=== PATIENT | female | born 1990 | race Two or more races ===

== ENCOUNTER 2019-04-02 11:46 | Inpatient (IN) | payer MEDICAID ==
[~2019-04-02] VITALS: Ht 165.1 cm; Wt 80.3 kg
[2019-04-02] MEDS ORDERED: NKM (11:53)
[2019-04-02] MEDS ORDERED: Metoclopramide 10mg/2ml Inj IVP ONE ×2 (12:00→17:45)
[2019-04-02] MEDS ORDERED: Isovue-300 100ml vial INJ PRN (12:00)
[2019-04-02] MEDS ORDERED: Ketorolac 30mg Inj IV ONE (12:00)
--- NOTE | 2019-04-02 12:20 | NUR ---
ED Nurse Note pt. came with c/o abdominal pain nausea vomiting since this morning, VSS, pt. is A/Ox4 ambulatory, vomited small amount of byle, called labs to draw blod from pt., given IV meds and fluids
[2019-04-02 12:44] VITALS: BP 153/79
--- NOTE | 2019-04-02 13:09 | NUR ---
ED Nurse Note:pt. was asked to provied urine sample but she couldn't and refused catheter incersion, taken to CT scan- pt. signed waiver
--- NOTE | 2019-04-02 13:49 | Emergency Room Report ---
History of Present Illness General Chief Complaint: Abdominal Pain Source: Family Member (Sofi Leggett DO) Present Illness HPI Patient presents with complaints of increased nausea vomiting diffuse abdominal pain initially it was difficult to obtain appropriate history however family has presented And reports that the patient has had episodes similar to this several times in the recent past She was diagnosed with cyclical vomiting Denies any fevers or chills denies any chest pain denies any shortness of breath (Sofi Leggett DO) Allergies: Coded Allergies: ERYTHROMYCIN BASE (Verified Allergy, Unknown, 04/02/19) Patient History Past Medical History: see triage record Pertinent Family History: none Last Menstrual Period: now Reviewed Nursing Documentation: PMH: Agreed; PSxH: Agreed (Sofi Leggett DO) Nursing Documentation-PMH Past Medical History: No Stated History (Sofi Leggett DO) Review of Systems All Other Systems: negative except mentioned in HPI (Sofi Leggett DO) Physical Exam Vital Signs Date Time Temp Pulse Resp B/P (MAP) Pulse Ox O2 Delivery O2 Flow Rate FiO2 04/02/19 11:48 97.7 49 15 143/78 (99) 100 Room Air Sp02 EP Interpretation: reviewed, normal General Appearance: mild distress - Appears uncomfortable Head: normocephalic, atraumatic Eyes: bilateral eye PERRL, bilateral eye EOMI ENT: hearing grossly normal, normal pharynx, TMs + canals normal, uvula midline Neck: full range of motion, supple, no meningismus, no bony tend Respiratory: lungs clear, normal breath sounds, no rhonchi, no respiratory distress, no retraction, no accessory muscle use Cardiovascular #1: normal peripheral pulses, regular rate, rhythm, no edema, no gallop, no JVD, no murmur Gastrointestinal: normal bowel sounds, non tender, soft, no mass, no organomegaly, non-distended, no guarding, no hernia, no pulsatile mass, no rebound Genitourinary: no CVA tenderness Musculoskeletal: normal inspection Neurologic: oriented x3, responsive, baffle installer III-XII nml as tested, motor strength/ tone normal, sensory intact Psychiatric: mood/affect normal Lymphatic: normal inspection, no adenopathy (Sofi Leggett DO) Medical Decision Making Diagnostic Impression: Primary Impression: Cyclical vomiting syndrome Qualified Codes: G43.A1 - Cyclical vomiting, intractable Labs Test 04/02/19 13:40 04/02/19 14:30 Urine Color Pale yellow Urine Appearance Clear Urine pH 9 (4.5-8.0) Urine Specific [place] 1.015 (1.005-1.035) Urine Protein Negative (NEGATIVE) Urine Glucose (UA) Negative (NEGATIVE) Urine Ketones Negative (NEGATIVE) Urine Blood Negative (NEGATIVE) Urine Nitrite Negative (NEGATIVE) Urine Bilirubin Negative (NEGATIVE) Urine Urobilinogen Normal MG/DL (0.0-1.0) Urine Leukocyte Esterase Negative (NEGATIVE) Urine HCG, Qualitative Negative (NEGATIVE) (Sofi Leggett DO) ER Course Hospital Course 28 yo F presents to ED c/o vomiting and abd pain Initially seen and evaluated by Dr Leggett; see his note for full history and physical Clinical course Labs - no leukocytosis, Hb/Hct stable, electrolytes ok CT abdomen and pelvis - no acute process After multiple rounds of IV fluids and antiemetics patient continues to have nausea and vomiting. Case discussed with Dr. Garner and he agreed to accept the patient to his service for further care and support I feel this is a highly complex case requiring extensive working including EKG/ Rhythm strip, Xray/CT/US, Blood/urine lab work, repeat exams while in ED, and administration of strong opiates/narcotics for pain control, admission to hospital or close patient follow up. Diagnosis - cyclical vomiting syndrome Patient admitted to floor in serious condition Labs Test 04/02/19 14:30 04/02/19 15:00 04/02/19 16:15 Urine Color Pale yellow Urine Appearance Clear Urine pH 9 (4.5-8.0) Urine Specific [place] 1.015 (1.005-1.035) Urine Protein Negative (NEGATIVE) Urine Glucose (UA) Negative (NEGATIVE) Urine Ketones Negative (NEGATIVE) Urine Blood Negative (NEGATIVE) Urine Nitrite Negative (NEGATIVE) Urine Bilirubin Negative (NEGATIVE) Urine Urobilinogen Normal MG/DL (0.0-1.0) Urine Leukocyte Esterase Negative (NEGATIVE) Urine HCG, Qualitative Negative (NEGATIVE) White Blood Count 15.1 K/UL (4.8-10.8) Red Blood Count 4.85 M/UL (4.20-5.40) Hemoglobin 13.0 G/DL (12.0-16.0) Hematocrit 40.5 % (37.0-47.0) Mean Corpuscular Volume 83 FL (80-99) Mean Corpuscular Hemoglobin 26.7 PG (27.0-31.0) Mean Corpuscular Hemoglobin Concent 32.1 G/DL (32.0-36.0) Red Cell Distribution Width 13.3 % (11.6-14.8) Platelet Count 181 K/UL (150-450) Mean Platelet Volume 6.9 FL (6.5-10.1) Neutrophils (%) (Auto) % (45.0-75.0) Lymphocytes (%) (Auto) % (20.0-45.0) Monocytes (%) (Auto) % (1.0-10.0) Eosinophils (%) (Auto) % (0.0-3.0) Basophils (%) (Auto) % (0.0-2.0) Differential Total Cells Counted 100 Neutrophils % (Manual) 85 % (45-75) Lymphocytes % (Manual) 9 % (20-45) Monocytes % (Manual) 4 % (1-10) Eosinophils % (Manual) 0 % (0-3) Basophils % (Manual) 0 % (0-2) Band Neutrophils 2 % (0-8) Platelet Estimate Adequate Platelet Morphology Normal Red Blood Cell Morphology Normal Sodium Level 139 MMOL/L (136-145) Potassium Level 3.8 MMOL/L (3.5-5.1) Chloride Level 107 MMOL/L (98-107) Carbon Dioxide Level 17 MMOL/L (21-32) Anion Gap 15 mmol/L (5-15) Blood Urea Nitrogen 5 mg/dL (7-18) Creatinine 0.9 MG/DL (0.55-1.30) Estimat Glomerular Filtration Rate > 60 mL/min (>60) Glucose Level 115 MG/DL (74-106) Calcium Level 7.7 MG/DL (8.5-10.1) Total Bilirubin 0.3 MG/DL (0.2-1.0) Aspartate Amino Transf (AST/SGOT) 20 U/L (15-37) Alanine Aminotransferase (ALT/SGPT) 19 U/L (12-78) Alkaline Phosphatase 66 U/L (46-116) Total Protein 6.4 G/DL (6.4-8.2) Albumin 3.1 G/DL (3.4-5.0) Globulin 3.3 g/dL Albumin/Globulin Ratio 0.9 (1.0-2.7) Lipase 74 U/L (73-393) Human Chorionic Gonadotropin, Quant < 1 mIU/mL (1-6) (Jayro Jiang MD) CT/MRI/US Diagnostic Results CT/MRI/US Diagnostic Results : Impression CT abdomen pelvisImpression: Limited assessment of the GI tract, due to lack of enteric contrast administration Small sliding-type hiatal hernia. Possible wall thickening of the distal esophagus, could indicate esophagitis. Correlate with clinical findings No acute process otherwise (Sofi Leggett DO) CT/MRI/US Diagnostic Results : Imaging Test Ordered: CT A/P Impression no acute process (Jayro Jiang MD) Last Vital Signs Date Time Temp Pulse Resp B/P (MAP) Pulse Ox O2 Delivery O2 Flow Rate FiO2 04/02/19 12:49 97.7 04/02/19 12:44 57 18 153/79 100 Room Air (Sofi Leggett DO) Status: unchanged (Jayro Jiang MD) Disposition: ADMITTED INPATIENT Condition: Serious Referrals: NOT CHOSEN IPA/,REFERRING (PCP) Sofi Leggett DO Apr 02, 2019 13:49 Jayro Jiang MD Apr 02, 2019 19:48
[2019-04-02] MEDS ORDERED: LORazepam Inj 2mg/ml 1ml IV ONE (14:00)
[2019-04-02] MEDS ORDERED: DiphenhydrAMINE 50mg/ml Inj IVP ONE (14:00)
[2019-04-02 14:03] VITALS: BP 156/77
--- NOTE | 2019-04-02 14:40 | Diagnostic Imaging Report ---
Indication: Abdominal pain Technique: Spiral acquisitions obtained through the abdomen and pelvis. No oral contrast utilized, per emergency room physician request No IV contrast utilized, per referring physician request.. Multiplanar reconstructions were generated. Total dose length product 938.55 mGycm. CTDIvol(s) 18.6 mGy. Dose reduction achieved using automated exposure control Comparison: None Findings: Lack of enteric contrast limits assessment of the GI tract. There is suggestion of a small sliding-type hiatal hernia and possible wall thickening of the distal esophagus. The stomach and duodenum are otherwise unremarkable. The appendix is normal. There is some evidence of fatty proliferation in the colon wall, particularly in the ascending colon. This is probably related to body habitus. There is no evidence of diverticulosis or diverticulitis. No small bowel distention. No free or loculated intraperitoneal gas or fluid is evident. Lack of IV contrast limits assessment of the solid organs. The liver, gallbladder, bile ducts, pancreas, spleen, adrenals, kidneys are all unremarkable. No renal or ureteral calculi, hydronephrosis, or hydroureter. No pelvic mass or adenopathy. There is a tampon present. The included lung bases are clear. The bones are unremarkable. Impression: Limited assessment of the GI tract, due to lack of enteric contrast administration Small sliding-type hiatal hernia. Possible wall thickening of the distal esophagus, could indicate esophagitis. Correlate with clinical findings No acute process otherwise The CT scanner at [facility] is accredited by the [employer] and the scans are performed using protocols designed to limit radiation exposure to as low as reasonably achievable to attain images of sufficient resolution adequate for diagnostic evaluation.
[2019-04-02 14:50] LABS: APPEARANCE,URINE CLEAR; BILIRUBIN, URINE NEGATIVE (NEGATIVE); COLOR,URINE PALE YELLOW; GLUCOSE, URINE (UA) NEGATIVE (NEGATIVE); KETONES,URINE NEGATIVE (NEGATIVE); LEUKOCYTE ESTERASE ,URINE NEGATIVE (NEGATIVE); NITRITE,URINE NEGATIVE (NEGATIVE); PH,URINE 9 (4.5-8.0); PROTEIN,URINE NEGATIVE (NEGATIVE); UROBILINOGEN,URINE NORMAL MG/DL (0.0-1.0)
--- NOTE | 2019-04-02 15:08 | NUR ---
ED Nurse Note:urine and blood sent to labs
[2019-04-02 15:32] LABS: HEMATOCRIT 40.5 % (37.0-47.0); MEAN CORPUSCULAR VOLUME 83 FL (80-99); PLATELET COUNT 181 K/UL (150-450); RED BLOOD COUNT 4.85 M/UL (4.20-5.40); RED CELL DISTRIBUTION WIDTH 13.3 % (11.6-14.8); WHITE BLOOD COUNT 15.1 K/UL (4.8-10.8)
[2019-04-02 16:35] VITALS: BP 116/64
[2019-04-02 16:42] LABS: ANION GAP 15 mmol/L (5-15); BLOOD UREA NITROGEN 5 mg/dL (7-18); CALCIUM 7.7 MG/DL (8.5-10.1); CARBON DIOXIDE 17 MMOL/L (21-32); CHLORIDE 107 MMOL/L (98-107); CREATININE 0.9 MG/DL (0.55-1.30); POTASSIUM 3.8 MMOL/L (3.5-5.1); SODIUM 139 MMOL/L (136-145)
[2019-04-02 16:46] LABS: ALANINE AMINOTRANSFERASE 19 U/L (12-78); ALBUMIN 3.1 G/DL (3.4-5.0); ALBUMIN/GLOBULIN RATIO 0.9 (1.0-2.7); ALKALINE PHOSPHATASE 66 U/L (46-116); ASPARTATE AMINO TRANSFERASE 20 U/L (15-37); BILIRUBIN,TOTAL 0.3 MG/DL (0.2-1.0)
[2019-04-02 18:47] VITALS: BP 123/66
--- NOTE | 2019-04-02 19:15 | NUR ---
ED Nurse Note: Recieved report from elisa Hewitt to resume care, pt in bed lying quietly, awake and alert, iv site patent with fluids infusing, pt is actively vomiting, smalll amount of bile colored fluids, pt on cardiac monitoring, assisted to bedside commode, tolerated well, will resume care as ordered and preapre for admission.
--- NOTE | 2019-04-02 20:05 | NUR ---
ED Nurse Note: PT HAS ROOM FOR ADMISSION, REPORT [facility] TO [facility] ON UNIT, PT MEDICATED FOR EMESIS, NO ACTIVE VOMITING, IV SITE PATENT, NO CP, NO SOB OR LABORED BREATHING, PT BEING TAKEN TO UNIT VIA GURNEY WITH ER-TECH, FAMILY AT BEDSIDE, NAD NOTED DURING TRANSPORT TO FLOOR UNIT.
[2019-04-02 20:35] VITALS: BP 132/73
[2019-04-02] MEDS: D5NS 1,000 ML IV SCH (21:04)
[2019-04-03] VITALS: BP 144/61
--- NOTE | 2019-04-03 01:30 | History and Physical Report ---
DATE OF ADMISSION: 04/02/2019 REASON FOR ADMISSION: 1. Nausea and vomiting. 2. Dehydration. HISTORY OF PRESENT ILLNESS: The patient is a 28-year-old female, who presented to the emergency room with increased nausea, vomiting, and diffuse abdominal pain over the last several days. Family is at bedside, stating that the patient had similar episode 2 years ago and had been diagnosed with cyclic vomiting. They deny any illicit drug use. The patient is very tired, weak, and fatigued, complaining of just constant nausea and vomiting. No current chest pain or shortness of breath. PAST MEDICAL HISTORY: Cyclic vomiting. PAST SURGICAL HISTORY: None. ALLERGIES: Erythromycin. FAMILY HISTORY: None. REVIEW OF SYSTEMS: NEUROLOGIC: The patient denies headache, change in vision, syncope, or presyncopal episodes. CARDIOVASCULAR: No current chest pain, palpitations, or angina. PULMONARY: No difficulty breathing, productive cough, or sputum. GASTROINTESTINAL/GENITOURINARY: The patient is having nausea, vomiting, and occasional diarrhea. ENDOCRINOLOGY: No night sweats, fever, or chills. MUSCULOSKELETAL: The patient is feeling weak, tired, and fatigued. PHYSICAL EXAMINATION: VITAL SIGNS: Blood pressure 123/66, 100% saturation on room air, respiratory rate 16, pulse 71, and temperature 97.7. GENERAL: The patient is awake, not feeling well, ill-appearing, and nauseated. HEENT: Extraocular muscles intact. No lymphadenopathy noted. Oropharyngeal mucosa is clear and dry. CARDIOVASCULAR: S1, S2. No rubs or gallops. PULMONARY: Clear to auscultation bilaterally. No rales, rhonchi, or wheezes. ABDOMEN: Nondistended and nontender. EXTREMITIES: No edema noted. LABORATORY DATA: Labs dated 04/02/2019, white cell count 15.1, hemoglobin 13, and platelet count 181,000. Sodium 139, potassium 3.8, glucose 115, and creatinine 0.9. Urinalysis negative. Quantitative HCG less than 1. ASSESSMENT AND PLAN: 1. Nausea and vomiting with occasional diarrhea. The patient has been diagnosed several years ago with what was known as cyclic vomiting. She was also currently recently having her menstrual cycle. At this time, we will use Tylenol and NSAIDs for any abdominal discomfort related to her menstrual cramps. We will continue aggressive hydration and consult GI for her cyclic vomiting syndrome. 2. Dehydration from her nausea and vomiting. We will continue aggressive hydration. 3. DVT prophylaxis with SCDs. Rich Garner MD DR: JABARI JOB#: [id number] CC:
--- NOTE | 2019-04-03 03:43 | NUR ---
NURSE NOTES: IV access from ER leaking, discontinued. Put in new IV access on Left FA, 24gauge. Was able to infuse 500cc D5NS per MD order before patient complained of FA swelling, insisted IV access be taken out. Dr Garner aware patient no longer has IV access.
[2019-04-03] MEDS: D5NS 1,000 ML IV SCH (03:47)
[2019-04-03 04:00] VITALS: BP 133/71
[2019-04-03 07:22] LABS: ANION GAP 12 mmol/L (5-15); BLOOD UREA NITROGEN 4 mg/dL (7-18); CARBON DIOXIDE 22 MMOL/L (21-32); CHLORIDE 107 MMOL/L (98-107); CREATININE 0.8 MG/DL (0.55-1.30); POTASSIUM 3.1 MMOL/L (3.5-5.1); SODIUM 141 MMOL/L (136-145)
[2019-04-03 07:28] LABS: BASOPHILS % (AUTO) 0.3 % (0.0-2.0); HEMATOCRIT 35.6 % (37.0-47.0); HEMOGLOBIN 11.7 G/DL (12.0-16.0); LYMPHOCYTES % (AUTO) 13.6 % (20.0-45.0); MEAN CORPUSCULAR VOLUME 81 FL (80-99); NEUTROPHILS % (AUTO) 81.2 % (45.0-75.0); PLATELET COUNT 216 K/UL (150-450); RED BLOOD COUNT 4.37 M/UL (4.20-5.40); RED CELL DISTRIBUTION WIDTH 12.8 % (11.6-14.8); WHITE BLOOD COUNT 14.5 K/UL (4.8-10.8)
--- NOTE | 2019-04-03 07:46 | Nephrology Progress Note ---
Assessment/Plan Assessment/Plan: A/P 1. N/V with occasional diarrhea. The patient has been diagnosed several years ago with what was known as cyclic vomiting. - GI to evaluate with reccs - IVFs - start full liquid diet 2. Dehydration from her nausea and vomiting. - full liquid diet 3. DVT prophylaxis with SCD 4. Mild Leukocytosis- Trending down. No fever. UA negative - stress induced. Monitor Subjective Date patient seen: Apr 03, 2019 Time patient seen: 07:44 ROS Limited/Unobtainable: No Gastrointestinal/Abdominal: Reports: vomiting Allergies: Coded Allergies: ERYTHROMYCIN BASE (Verified Allergy, Unknown, 04/02/19) Subjective Patient still nauseated Objective Last 24 Hour Vital Signs Date Time Temp Pulse Resp B/P (MAP) Pulse Ox O2 Delivery O2 Flow Rate FiO2 04/03/19 04:00 98.3 58 18 133/71 (91) 99 04/03/19 01:35 Room Air 04/03/19 00:00 98.6 61 20 144/61 (88) 96 04/02/19 20:35 97.9 70 20 132/73 (92) 96 04/02/19 20:05 97.7 71 16 123/66 100 Room Air 04/02/19 18:47 71 16 123/66 100 Room Air 04/02/19 16:35 97.7 70 15 116/64 100 Room Air 04/02/19 14:03 97.7 65 18 156/77 100 Room Air 04/02/19 12:49 97.7 04/02/19 12:44 97.7 57 18 153/79 100 Room Air 04/02/19 12:44 57 18 Room Air 04/02/19 11:48 97.7 49 15 143/78 (99) 100 Room Air Intake and Output 04/02/19 04/03/19 19:00 07:00 Intake Total 750 ml Output Total 150 ml Balance -150 ml 750 ml Intake IV Total 750 ml Output Emesis 150 ml # Voids 2 Laboratory Tests 04/02/19 14:30: Urine Color Pale yellow, Urine Appearance Clear, Urine pH 9, Urine Specific [place] 1.015, Urine Protein Negative, Urine Glucose (UA) Negative, Urine Ketones Negative, Urine Blood Negative, Urine Nitrite Negative, Urine Bilirubin Negative, Urine Urobilinogen Normal, Urine Leukocyte Esterase Negative, Urine HCG, Qualitative Negative 04/02/19 15:00: White Blood Count 15.1H, Red Blood Count 4.85, Hemoglobin 13.0, Hematocrit 40.5 , Mean Corpuscular Volume 83, Mean Corpuscular Hemoglobin 26.7L, Mean Corpuscular Hemoglobin Concent 32.1, Red Cell Distribution Width 13.3, Platelet Count 181, Mean Platelet Volume 6.9, Neutrophils (%) (Auto) , Lymphocytes (%) ( Auto) , Monocytes (%) (Auto) , Eosinophils (%) (Auto) , Basophils (%) (Auto) , Differential Total Cells Counted 100, Neutrophils % (Manual) 85H, Lymphocytes % (Manual) 9L, Monocytes % (Manual) 4, Eosinophils % (Manual) 0, Basophils % ( Manual) 0, Band Neutrophils 2, Platelet Estimate Adequate, Platelet Morphology Normal, Red Blood Cell Morphology Normal 04/02/19 16:15: Sodium Level 139, Potassium Level 3.8, Chloride Level 107, Carbon Dioxide Level 17L, Anion Gap 15, Blood Urea Nitrogen 5L, Creatinine 0.9, Estimat Glomerular Filtration Rate > 60, Glucose Level 115H, Calcium Level 7.7L, Total Bilirubin 0.3, Aspartate Amino Transf (AST/SGOT) 20, Alanine Aminotransferase (ALT/SGPT) 19, Alkaline Phosphatase 66, Total Protein 6.4, Albumin 3.1L, Globulin 3.3, Albumin/Globulin Ratio 0.9L, Lipase 74, Human Chorionic Gonadotropin, Quant < 1L 04/02/19 23:40: Urine Opiates Screen Negative, Urine Barbiturates Screen Negative, Phencyclidine (PCP) Screen Negative, Urine Amphetamines Screen Negative, Urine Benzodiazepines Screen Negative, Urine Cocaine Screen Negative, Urine Marijuana (THC) Screen PositiveH 04/03/19 06:38: White Blood Count 14.5H, Red Blood Count 4.37, Hemoglobin 11.7L, Hematocrit 35.6L, Mean Corpuscular Volume 81, Mean Corpuscular Hemoglobin 26.8L, Mean Corpuscular Hemoglobin Concent 33.0, Red Cell Distribution Width 12.8, Platelet Count 216, Mean Platelet Volume 7.6, Neutrophils (%) (Auto) 81.2H, Lymphocytes ( %) (Auto) 13.6L, Monocytes (%) (Auto) 5.0, Eosinophils (%) (Auto) 0.0, Basophils (%) (Auto) 0.3, Sodium Level 141, Potassium Level 3.1L, Chloride Level 107, Carbon Dioxide Level 22, Anion Gap 12, Blood Urea Nitrogen 4L, Creatinine 0.8, Estimat Glomerular Filtration Rate > 60, Glucose Level 118H, Calcium Level 8.0L Height (Feet): 5 Height (Inches): 3.00 Weight (Pounds): 170 General Appearance: no apparent distress EENT: normal ENT inspection Neck: normal alignment, supple Cardiovascular: normal rate, regular rhythm Respiratory/Chest: lungs clear, normal breath sounds Abdomen: non tender, soft Edema: no edema noted Arm (L), no edema noted Arm (R), no edema noted Leg (L), no edema noted Leg (R), no edema noted Pedal (L), no edema noted Pedal (R), no edema noted Generalized Rich Garner MD Apr 03, 2019 07:46
[2019-04-03 08:00] VITALS: BP 106/53
--- NOTE | 2019-04-03 08:18 | NUR ---
NURSE NOTES: patient is awake and alert,no complaints of nausea at this time.DR De Paz was here to see patient ,patient will start on a full liquid diet.Jaren light within reach.
--- NOTE | 2019-04-03 09:36 | General Progress Note ---
Assessment/Plan Assessment/Plan: Assessment - intermittent vomiting x 10 years, Cannabis hyperemesis synd vs cyclic N/V - daily cannabis use Recommendations - IVF - antiemetics - advance diet as tolerated - reduce cannabis consumption - further w/u if symptoms persist Thank you Loren Green MD Subjective Allergies: Coded Allergies: ERYTHROMYCIN BASE (Verified Allergy, Unknown, 04/02/19) Objective Last 24 Hour Vital Signs Date Time Temp Pulse Resp B/P (MAP) Pulse Ox O2 Delivery O2 Flow Rate FiO2 04/03/19 04:00 98.3 58 18 133/71 (91) 99 04/03/19 01:35 Room Air 04/03/19 00:00 98.6 61 20 144/61 (88) 96 04/02/19 20:35 97.9 70 20 132/73 (92) 96 04/02/19 20:05 97.7 71 16 123/66 100 Room Air 04/02/19 18:47 71 16 123/66 100 Room Air 04/02/19 16:35 97.7 70 15 116/64 100 Room Air 04/02/19 14:03 97.7 65 18 156/77 100 Room Air 04/02/19 12:49 97.7 04/02/19 12:44 97.7 57 18 153/79 100 Room Air 04/02/19 12:44 57 18 Room Air 04/02/19 11:48 97.7 49 15 143/78 (99) 100 Room Air Intake and Output 04/02/19 04/03/19 19:00 07:00 Intake Total 750 ml Output Total 150 ml Balance -150 ml 750 ml Intake IV Total 750 ml Output Emesis 150 ml # Voids 2 Laboratory Tests 04/02/19 14:30: Urine Color Pale yellow, Urine Appearance Clear, Urine pH 9, Urine Specific [place] 1.015, Urine Protein Negative, Urine Glucose (UA) Negative, Urine Ketones Negative, Urine Blood Negative, Urine Nitrite Negative, Urine Bilirubin Negative, Urine Urobilinogen Normal, Urine Leukocyte Esterase Negative, Urine HCG, Qualitative Negative 04/02/19 15:00: White Blood Count 15.1H, Red Blood Count 4.85, Hemoglobin 13.0, Hematocrit 40.5 , Mean Corpuscular Volume 83, Mean Corpuscular Hemoglobin 26.7L, Mean Corpuscular Hemoglobin Concent 32.1, Red Cell Distribution Width 13.3, Platelet Count 181, Mean Platelet Volume 6.9, Neutrophils (%) (Auto) , Lymphocytes (%) ( Auto) , Monocytes (%) (Auto) , Eosinophils (%) (Auto) , Basophils (%) (Auto) , Differential Total Cells Counted 100, Neutrophils % (Manual) 85H, Lymphocytes % (Manual) 9L, Monocytes % (Manual) 4, Eosinophils % (Manual) 0, Basophils % ( Manual) 0, Band Neutrophils 2, Platelet Estimate Adequate, Platelet Morphology Normal, Red Blood Cell Morphology Normal 04/02/19 16:15: Sodium Level 139, Potassium Level 3.8, Chloride Level 107, Carbon Dioxide Level 17L, Anion Gap 15, Blood Urea Nitrogen 5L, Creatinine 0.9, Estimat Glomerular Filtration Rate > 60, Glucose Level 115H, Calcium Level 7.7L, Total Bilirubin 0.3, Aspartate Amino Transf (AST/SGOT) 20, Alanine Aminotransferase (ALT/SGPT) 19, Alkaline Phosphatase 66, Total Protein 6.4, Albumin 3.1L, Globulin 3.3, Albumin/Globulin Ratio 0.9L, Lipase 74, Human Chorionic Gonadotropin, Quant < 1L 04/02/19 23:40: Urine Opiates Screen Negative, Urine Barbiturates Screen Negative, Phencyclidine (PCP) Screen Negative, Urine Amphetamines Screen Negative, Urine Benzodiazepines Screen Negative, Urine Cocaine Screen Negative, Urine Marijuana (THC) Screen PositiveH 04/03/19 06:38: White Blood Count 14.5H, Red Blood Count 4.37, Hemoglobin 11.7L, Hematocrit 35.6L, Mean Corpuscular Volume 81, Mean Corpuscular Hemoglobin 26.8L, Mean Corpuscular Hemoglobin Concent 33.0, Red Cell Distribution Width 12.8, Platelet Count 216, Mean Platelet Volume 7.6, Neutrophils (%) (Auto) 81.2H, Lymphocytes ( %) (Auto) 13.6L, Monocytes (%) (Auto) 5.0, Eosinophils (%) (Auto) 0.0, Basophils (%) (Auto) 0.3, Sodium Level 141, Potassium Level 3.1L, Chloride Level 107, Carbon Dioxide Level 22, Anion Gap 12, Blood Urea Nitrogen 4L, Creatinine 0.8, Estimat Glomerular Filtration Rate > 60, Glucose Level 118H, Calcium Level 8.0L Height (Feet): 5 Height (Inches): 3.00 Weight (Pounds): 170 Loren Green MD Apr 03, 2019 09:36
--- NOTE | 2019-04-03 10:53 | NUR ---
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
[2019-04-03 12:00] VITALS: BP 148/70
[2019-04-03 16:00] VITALS: BP 105/48
--- NOTE | 2019-04-03 18:16 | NUR ---
NURSE NOTES: Patient nauseated with vomiting,attempt to restart IV.Will attempt using vein finder.
[2019-04-03 20:00] VITALS: BP 142/69
--- NOTE | 2019-04-03 20:01 | NUR ---
HAND-OFF: Report given to Earnestine Fang.
--- NOTE | 2019-04-03 20:40 | NUR ---
NURSE NOTES: Patient was found by the charge manager kneeling on the floor around 2019. The patient said she was trying to go to the bathroom and slid down the side of the bed. She stated that grabbed the side rail on her way down, and she bumped her right hip on the side rail on her way down. Patient denies any pain in the right hip and said she did not hit her head. No apparent injury upon assessment. notified.
--- NOTE | 2019-04-03 20:50 | NUR ---
NURSE NOTES: Received report from MOODY Al. Patient is awake and alert x4. Patient is room air with no SOB. Patient noted to be vomitting. Provided basin and Zofran around 2034. Patient does not have IV access at this time. Previous shift unable to obtain IV access per AM nurse. Will attempt to gain access. Bed is locked and in lowest position. Call light is within reach. Will continue to monitor closely.
[2019-04-03] MEDS ORDERED: Dicyclomine HCl 10mg/5ml oral soln ORAL PRN (22:15)
--- NOTE | 2019-04-03 22:15 | NUR ---
NURSE NOTES: Patient complaining of nausea and abdominal pain. Informed MD of patient's complaints. Orders were put in and carried out.
[2019-04-04] VITALS (7 sets, daily range): BP systolic 136–152; BP diastolic 76–91
[2019-04-04] MEDS ORDERED: Lidocaine 1% Plain 30 ml INJ PRN ×2 (01:30→09:30)
--- NOTE | 2019-04-04 03:00 | Consultation ---
DATE OF CONSULTATION: 04/03/2019 GASTROENTEROLOGY CONSULTATION CONSULTING PHYSICIAN: Loren Green M.D. REFERRING PHYSICIAN: Rich Garner M.D. CHIEF COMPLAINT: I was asked to see this patient by Dr. Rich Garner for evaluation of vomiting. HISTORY OF PRESENT ILLNESS: The patient is a pleasant 28-year-old woman, who came into the hospital with one-day history of nausea and vomiting. The patient has had some diffuse abdominal pain, which is improved. She does relate that her vomiting has subsided. The patient had another attack about 2 years ago. She states she has had these attacks for the past 10 or 11 years. She states this started 10 years ago and she has been hospitalized a few times. The patient has had an endoscopy in 2006, which was unremarkable. She does take marijuana daily for the past 10 years as well. PAST MEDICAL HISTORY: Otherwise negative. FAMILY HISTORY: Noncontributory. PAST SURGICAL HISTORY: None. SOCIAL HISTORY: The patient is here on a trip. She is otherwise from the [facility]. REVIEW OF SYSTEMS: Otherwise negative. PHYSICAL EXAMINATION: GENERAL: This is a pleasant woman, seen in her room. HEENT: Normocephalic and atraumatic. Sclerae anicteric. Oropharynx clear. NECK: Supple. CHEST: Clear to auscultation. CARDIOVASCULAR: Revealed a regular rate. ABDOMEN: Soft. Good bowel sounds. EXTREMITIES: Revealed no edema. LABORATORY DATA: Noted. ASSESSMENT: This patient presents with cyclic nausea and vomiting, which is recurrent in this patient for the past 10 years. It is also interesting that the timeline coincides with her 10-year use of cannabis, which brings up the possibility of cannabis hyperemesis syndrome. The differential diagnosis includes cyclic nausea vomiting syndrome, which can mimic many of the same features. Given the possibility of the former, I strongly encouraged the patient to discontinue the marijuana use and determine whether her symptoms will resolve off cannabis use. For cyclic nausea and vomiting, the usual treatment is either symptomatic or sometimes treated as migraine disorder. If it persists, then further evaluation with endoscopy or other modalities can be considered. RECOMMENDATIONS: Per above discussion and per orders in the chart. Thank you for asking me to participate in the care of this patient Loren Green M.D. DR: STEPHON JOB#: [id number] CC: ANDRADE
[2019-04-04] MEDS ORDERED: Heparin1,000 units/500ml Premix(Conc:2 units/ml) IV PRN ×2 (06:30→09:30)
--- NOTE | 2019-04-04 07:43 | NUR ---
HAND-OFF: Report given to MOODY Al.
--- NOTE | 2019-04-04 07:53 | NUR ---
NURSE NOTES: Patient awake and alert,respirations unlabored,DR Green was here to see patient,patient state DR singletary wants to do procedure,patient state she is scared,talking with her Mother on the phone,will follow up.Call light within reach,bed alarm on.
[2019-04-04 08:55] LABS: ANION GAP 13 mmol/L (5-15); BLOOD UREA NITROGEN 9 mg/dL (7-18); CALCIUM 8.4 MG/DL (8.5-10.1); CARBON DIOXIDE 23 MMOL/L (21-32); CHLORIDE 107 MMOL/L (98-107); POTASSIUM 2.9 MMOL/L (3.5-5.1); SODIUM 143 MMOL/L (136-145)
--- NOTE | 2019-04-04 09:03 | General Progress Note ---
Assessment/Plan Assessment/Plan: Assessment - intermittent vomiting x 10 years, Cannabis hyperemesis synd vs cyclic N/V - daily cannabis use - dark emesis, likely secondary to frequent emesis - no IV access Recommendations - IVF - once IV access established - antiemetics - clears for now - EGD tomorrow,if patient accepts - reduce cannabis consumption - further w/u if symptoms persist Subjective Allergies: Coded Allergies: ERYTHROMYCIN BASE (Verified Allergy, Unknown, 04/02/19) Subjective more vomiting through the night some dark color emesis noted no IV access advised need for EGD - not sure if she will accept Objective Last 24 Hour Vital Signs Date Time Temp Pulse Resp B/P (MAP) Pulse Ox O2 Delivery O2 Flow Rate FiO2 04/04/19 04:00 98.1 54 18 152/91 (111) 100 04/04/19 00:00 98.4 58 18 138/80 (99) 100 04/03/19 21:00 Room Air 04/03/19 20:00 99.2 56 18 142/69 (93) 100 04/03/19 16:00 98.1 56 18 105/48 (67) 99 04/03/19 12:00 98.4 53 18 148/70 (96) 98 Intake and Output 04/03/19 04/04/19 19:00 07:00 Intake Total 360 ml 720 ml Balance 360 ml 720 ml Intake Oral 360 ml 720 ml Laboratory Tests 04/04/19 07:50: Sodium Level 143, Potassium Level 2.9L, Chloride Level 107, Carbon Dioxide Level 23, Anion Gap 13, Blood Urea Nitrogen 9, Creatinine 1.0, Estimat Glomerular Filtration Rate > 60, Glucose Level 128H, Calcium Level 8.4L Height (Feet): 5 Height (Inches): 3.00 Weight (Pounds): 177 Objective WDWN NCAT supple CTA RRR abd soft, mild epigastric TTP no edema Loren Green MD Apr 04, 2019 09:03
--- NOTE | 2019-04-04 09:32 | Nephrology Progress Note ---
Assessment/Plan Assessment/Plan: A/P 1. N/V- persists and we have no current IV access despite 24 hrs of attempts - cyclic vomiting vs cannabis hyperemesis - EGD tomorrow - IVFs once PICC placed 2. Dehydration from her nausea and vomiting. - full liquid diet 3. DVT prophylaxis with SCD 4. Mild Leukocytosis- reopeat CBC in am 5. Hypokalemia- replacing daily from hyperemesis Subjective Date patient seen: Apr 04, 2019 Time patient seen: 09:29 ROS Limited/Unobtainable: No Gastrointestinal/Abdominal: Reports: nausea, vomiting Allergies: Coded Allergies: ERYTHROMYCIN BASE (Verified Allergy, Unknown, 04/02/19) Subjective Patient still nauseated Objective Last 24 Hour Vital Signs Date Time Temp Pulse Resp B/P (MAP) Pulse Ox O2 Delivery O2 Flow Rate FiO2 04/04/19 04:00 98.1 54 18 152/91 (111) 100 04/04/19 00:00 98.4 58 18 138/80 (99) 100 04/03/19 21:00 Room Air 04/03/19 20:00 99.2 56 18 142/69 (93) 100 04/03/19 16:00 98.1 56 18 105/48 (67) 99 04/03/19 12:00 98.4 53 18 148/70 (96) 98 Intake and Output 04/03/19 04/04/19 19:00 07:00 Intake Total 360 ml 720 ml Balance 360 ml 720 ml Intake Oral 360 ml 720 ml Laboratory Tests 04/04/19 07:50: Sodium Level 143, Potassium Level 2.9L, Chloride Level 107, Carbon Dioxide Level 23, Anion Gap 13, Blood Urea Nitrogen 9, Creatinine 1.0, Estimat Glomerular Filtration Rate > 60, Glucose Level 128H, Calcium Level 8.4L Height (Feet): 5 Height (Inches): 3.00 Weight (Pounds): 177 General Appearance: no apparent distress, mild distress EENT: PERRL/EOMI Neck: normal alignment, supple Cardiovascular: normal rate, regular rhythm Respiratory/Chest: lungs clear, normal breath sounds Abdomen: non tender, soft Edema: no edema noted Arm (L), no edema noted Arm (R), no edema noted Leg (L), no edema noted Leg (R), no edema noted Pedal (L), no edema noted Pedal (R), no edema noted Generalized Rich Garner MD Apr 04, 2019 09:32
--- NOTE | 2019-04-04 11:01 | NUR ---
*-* INSURANCE *-* ALL CLINICALS AND REVIEWS HAVE BEEN FAXED TO: [facility]DR[facility]: TAMIKO Potts (OUT OF THE OFFICE) P- [phone] F- [phone]...REVIEW & CLINICAL
--- NOTE | 2019-04-04 11:05 | NUR ---
RADIOLOGY: LEFT UPPER EXTREMITY PICC PLACED.
[2019-04-04] MEDS: D5NS 1,000 ML IV SCH ×3 (11:30→23:09)
--- NOTE | 2019-04-04 11:33 | Diagnostic Imaging Report ---
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 The left upper extremity was prepped with alcohol. All elements of maximal sterile barrier technique were followed including usage of a cap, mask, sterile gown, sterile gloves, hand hygiene and a large sterile sheet. Sonographic evaluation of the upper extremity was performed demonstrating a patent and compressible brachial vein. Access was obtained under real-time ultrasound guidance (with utilization of sterile gel and sterile probe cover) and digital image was saved and archived. An .018 wire was introduced. Needle exchanged for a 5 [place] peel-away sheath. Measurements were obtained. A 5 [place] dual-lumen Power PICC line catheter was cut to 45 cm and introduced over the wire. Peel-away sheath and wire were removed.Catheter was secured to the skin using 2-0 Prolene suture. Both ports aspirate and flush easily. A single fluoroscopic image shows the distal tip in the superior vena cava. Fluoroscopic time 19 seconds. Impression: Successful placement of an upper extremity PICC line catheter
--- NOTE | 2019-04-04 13:52 | NUR ---
NURSE NOTES: Patient complaining of pain, patient requesting IV pain medication instead of po . .DR Marques state patient can have for pain, Morphine 1mg [id number] prn pain if okay with DR Green.Spoke with DR Green and state that is okay to give as ordered.DR Marques aware patient did not take po potassium ,DR state okay since patient receiving the IV potassium as ordered.DR Green updated that patient agree to have EGD ,DR state he will put in the order.
[2019-04-04] MEDS: Morphine Sulfate 2mg/ml Inj(IV/IM USE ONLY) IVP PRN ×2 (14:51→20:19)
--- NOTE | 2019-04-04 18:30 | NUR ---
NURSE NOTES: patient resting,no complaint of nausea at this time,patient received IVPB potassium as ordered.IV fluids continue to infuse as ordered.Call light within reach.
--- NOTE | 2019-04-04 19:33 | NUR ---
HAND-OFF: Report given to Earnestine URIOSTEGUI.
--- NOTE | 2019-04-04 19:46 | NUR ---
NURSE NOTES: Received report from MOODY Al. Patient is sitting up in bed. Alert x4, room air, with no signs of distress or SOB. Bed is locked and in lowest position with 2 side rails up. Left upper arm PICC line is intact and patent. Patient is complaining of nausea. Will follow up and give medication as ordered.
[2019-04-04] MEDS ORDERED: Dyna-Hex 2% Top Sol 2oz TOPIC SCH (20:00)
[2019-04-04] MEDS: Dyna-Hex 2% Top Sol 2oz TOPIC SCH (20:17)
[2019-04-05] VITALS (10 sets, daily range): BP systolic 116–142; BP diastolic 53–79
[2019-04-05] MEDS: Morphine Sulfate 2mg/ml Inj(IV/IM USE ONLY) IVP PRN (01:15)
--- NOTE | 2019-04-05 01:15 | NUR ---
NURSE NOTES: Pulled out Zofran from Pyxis around 0110 to administer. Noted that frequency was Q6H and no longer Q4H. Did not administer. Zofran was already pulled through syringe. Wasted med in the Pyxis & med room.
[2019-04-05] MEDS: D5NS 1,000 ML IV SCH (06:20)
[2019-04-05 07:29] LABS: BASOPHILS % (AUTO) 0.7 % (0.0-2.0); EOSINOPHILS % (AUTO) 0.5 % (0.0-3.0); HEMATOCRIT 34.5 % (37.0-47.0); LYMPHOCYTES % (AUTO) 24.1 % (20.0-45.0); MEAN CORPUSCULAR VOLUME 83 FL (80-99); MONOCYTES % (AUTO) 6.1 % (1.0-10.0); NEUTROPHILS % (AUTO) 68.6 % (45.0-75.0); PLATELET COUNT 166 K/UL (150-450); RED BLOOD COUNT 4.17 M/UL (4.20-5.40); RED CELL DISTRIBUTION WIDTH 13.1 % (11.6-14.8)
[2019-04-05 07:32] LABS: ANION GAP 8 mmol/L (5-15); BLOOD UREA NITROGEN 5 mg/dL (7-18); CALCIUM 7.4 MG/DL (8.5-10.1); CARBON DIOXIDE 27 MMOL/L (21-32); CHLORIDE 108 MMOL/L (98-107); CREATININE 0.8 MG/DL (0.55-1.30); POTASSIUM 2.8 MMOL/L (3.5-5.1); SODIUM 143 MMOL/L (136-145)
--- NOTE | 2019-04-05 07:34 | NUR ---
HAND-OFF: Report given to MOODY Umanzor. Addendum: 04/05/19 at 0735 by ELIZABETH FERNANDES RN MOODY Gomez
--- NOTE | 2019-04-05 07:40 | NUR ---
NURSE NOTES: Received patient from Earnestine URIOSTEGUI in bed resting, denies any pain at this time. Patient is alert and oriented x4, no s/s of acute distress noted. Bed is on lowest position, bedside rails is up x3.Double-lumen PICC on left upper arm is intact and patent. Brakes engaged for safety. Call light and table within reach. Will continue with the plan of care.
--- NOTE | 2019-04-05 09:33 | Nephrology Progress Note ---
Assessment/Plan Assessment/Plan: A/P 1. N/V- persists - cyclic vomiting vs cannabis hyperemesis - EGD today 2. Dehydration from her nausea and vomiting. - IVFs 3. DVT prophylaxis with SCD 4. Mild Leukocytosis- stress induced and improved 5. Hypokalemia- replacing daily from hyperemesis Subjective Date patient seen: Apr 05, 2019 Time patient seen: 09:31 ROS Limited/Unobtainable: No Allergies: Coded Allergies: ERYTHROMYCIN BASE (Verified Allergy, Unknown, 04/02/19) Subjective Patient still nauseated with slight improvement Objective Last 24 Hour Vital Signs Date Time Temp Pulse Resp B/P (MAP) Pulse Ox O2 Delivery O2 Flow Rate FiO2 04/05/19 04:00 98.3 58 18 116/53 (74) 98 04/05/19 00:00 98.2 64 18 142/76 (98) 99 04/04/19 21:00 Room Air 04/04/19 20:00 98.6 61 16 151/76 (101) 98 04/04/19 17:12 98.9 54 14 136/81 (99) 99 04/04/19 16:00 98.9 54 14 136/81 (99) 99 04/04/19 12:02 98.6 53 18 143/79 (100) 97 04/04/19 10:19 Room Air Intake and Output 04/04/19 04/05/19 19:00 07:00 Intake Total 600 ml 1500 ml Balance 600 ml 1500 ml IV Total 600 ml 1500 ml Laboratory Tests 04/05/19 04:50: White Blood Count 12.0H, Red Blood Count 4.17L, Hemoglobin 11.0L, Hematocrit 34.5L, Mean Corpuscular Volume 83, Mean Corpuscular Hemoglobin 26.4L, Mean Corpuscular Hemoglobin Concent 31.9L, Red Cell Distribution Width 13.1, Platelet Count 166, Mean Platelet Volume 8.1, Neutrophils (%) (Auto) 68.6, Lymphocytes (%) (Auto) 24.1, Monocytes (%) (Auto) 6.1, Eosinophils (%) (Auto) 0.5, Basophils (%) (Auto) 0.7, Sodium Level 143, Potassium Level 2.8L, Chloride Level 108H, Carbon Dioxide Level 27, Anion Gap 8, Blood Urea Nitrogen 5L, Creatinine 0.8, Estimat Glomerular Filtration Rate > 60, Glucose Level 94, Calcium Level 7.4L Height (Feet): 5 Height (Inches): 5.00 Weight (Pounds): 177 General Appearance: no apparent distress, mild distress Rich Garner MD Apr 05, 2019 09:33
--- NOTE | 2019-04-05 09:50 | NUR ---
NURSE NOTES: Patient off the floor for EGD procedure.
[2019-04-05] MEDS ORDERED: Propofol 200mg/20ml IV ONE (10:00)
[2019-04-05] MEDS ORDERED: fentaNYL 100 mcg/2 mL IV ONE (10:00)
[2019-04-05] MEDS ORDERED: Midazolam 2mg/2ml Inj ONE (10:00)
--- NOTE | 2019-04-05 10:07 | General Progress Note ---
Assessment/Plan Assessment/Plan: Assessment - intermittent vomiting x 10 years, Cannabis hyperemesis synd vs cyclic N/V - daily cannabis use - dark emesis, likely secondary to frequent emesis - low K , likely from emesis Recommendations - IV KCL - antiemetics - EGD - reduce cannabis consumption - further w/u if symptoms persist Subjective Allergies: Coded Allergies: ERYTHROMYCIN BASE (Verified Allergy, Unknown, 04/02/19) Subjective last emesis at 0300 K lower today d/w patient re EGD Objective Last 24 Hour Vital Signs Date Time Temp Pulse Resp B/P (MAP) Pulse Ox O2 Delivery O2 Flow Rate FiO2 04/05/19 09:00 Room Air 04/05/19 08:00 98.3 60 18 128/70 (89) 98 04/05/19 04:00 98.3 58 18 116/53 (74) 98 04/05/19 00:00 98.2 64 18 142/76 (98) 99 04/04/19 21:00 Room Air 04/04/19 20:00 98.6 61 16 151/76 (101) 98 04/04/19 17:12 98.9 54 14 136/81 (99) 99 04/04/19 16:00 98.9 54 14 136/81 (99) 99 04/04/19 12:02 98.6 53 18 143/79 (100) 97 04/04/19 10:19 Room Air Intake and Output 04/04/19 04/05/19 19:00 07:00 Intake Total 600 ml 1500 ml Balance 600 ml 1500 ml IV Total 600 ml 1500 ml Laboratory Tests 04/05/19 04:50: White Blood Count 12.0H, Red Blood Count 4.17L, Hemoglobin 11.0L, Hematocrit 34.5L, Mean Corpuscular Volume 83, Mean Corpuscular Hemoglobin 26.4L, Mean Corpuscular Hemoglobin Concent 31.9L, Red Cell Distribution Width 13.1, Platelet Count 166, Mean Platelet Volume 8.1, Neutrophils (%) (Auto) 68.6, Lymphocytes (%) (Auto) 24.1, Monocytes (%) (Auto) 6.1, Eosinophils (%) (Auto) 0.5, Basophils (%) (Auto) 0.7, Sodium Level 143, Potassium Level 2.8L, Chloride Level 108H, Carbon Dioxide Level 27, Anion Gap 8, Blood Urea Nitrogen 5L, Creatinine 0.8, Estimat Glomerular Filtration Rate > 60, Glucose Level 94, Calcium Level 7.4L Height (Feet): 5 Height (Inches): 5.00 Weight (Pounds): 177 Objective WDWN NCAT supple CTA RRR abd soft, mild epigastric TTP no edema Loren Green MD Apr 05, 2019 10:07
--- NOTE | 2019-04-05 10:07 | Pre-Procedure Note/Attestation ---
Pre-Procedure Note/Attestation Complete Prior to Procedure Planned Procedure: not applicable Procedure Narrative: EGD Indications for Procedure Pre-Operative Diagnosis: UGIB Attestation I attest that I discussed the nature of the procedure; its benefits; risks and complications; and alternatives (and the risks and benefits of such alternatives ), prior to the procedure, with the patient (or the patient's legal liability claims representative). I attest that, if there was a reasonable possibility of needing a blood transfusion, the patient (or the patient's legal liability claims representative) was given the [facility] standardized written summary, pursuant to the [place] Gal[place] Blood Safety Act ([place] Health and Safety Code # 1645, as amended). I attest that I re-evaluated the patient just prior to the surgery and that there has been no change in the patient's H&P, except as documented below: Loren Green MD Apr 05, 2019 10:07
--- NOTE | 2019-04-05 10:21 | Endoscopy Procedure Note ---
Endoscopy Procedure Note General Indication for Procedure: UGIB Procedures Performed: EGD Operative Findings/Diagnosis: 4 cm HH and ulcerative GERD Specimen: yes Pt Tolerated Procedure Well: Yes Estimated Blood Loss: none Anesthesia Anesthesiologist: Jyoti Anesthesia: MAC Medications Medication Given: see anesthesia record Inserted Devices Implant(s) used?: No GI Core Measures 50 yrs or older w/o bx or poly: Not Applicable 10yrs. F/U recommended: Not Applicable If not recommended, why?: Loren Green MD Apr 05, 2019 10:21
--- NOTE | 2019-04-05 10:22 | Brief Operative Note ---
Immediate Post Operative Note Operative Note Chief Complaint: UGIB Pre-op Diagnosis: UGIB Procedure: EGD bx Post-op Diagnosis: HH x 4 cm, GERD Surgeon: anderson Anesthesiologist: dillon Anesthesia: MAC Specimen: yes Complications: none Condition: stable Fluids: Given Implant(s) used?: No Loren Green MD Apr 05, 2019 10:22
--- NOTE | 2019-04-05 10:24 | Anethesia Preoperative Eval ---
Anesthesia Pre-op PMH/ROS General Date of Evaluation: Apr 05, 2019 Time of Evaluation: 10:05 Anesthesiologist: Mya ASA Score: ASA 2 Mallampati Score Class I : Soft palate, uvula, fauces, pillars visible Class II: Soft palate, uvula, fauces visible Class III: Soft palate, base of uvula visible Class IV: Only hard plate visible Mallampati Classification: Class II Surgeon: Adalberto Diagnosis: GI bleed Surgical Procedure: EGD with Bx Anesthesia History: none Family History: no anesthesia problems Allergies: Coded Allergies: ERYTHROMYCIN BASE (Verified Allergy, Unknown, 04/02/19) Medications: see eMAR Patient NPO?: Yes Past Medical History Cardiovascular: Denies: HTN, CAD, NE, valve dz, arrhythmia, other Pulmonary: Denies: asthma, COPD, RACHELLE, other Gastrointestinal/Genitourinary: Reports: GERD; Denies: CRI, ESRD, other Neurologic/Psychiatric: Reports: depression/anxiety; Denies: dementia, CVA, TIA, other Endocrine: Denies: DM, hypothyroidism, steroids, other HEENT: Denies: cataract (L), cataract (R), glaucoma, KEWEENAW (L), KEWEENAW (R), other Hematology/Immune: Reports: anemia - mild; Denies: DVT, bleeding disorder, other Musculoskeletal/Integumentary: Denies: OA, RA, DJD, DDD, edema, other Other: other - overweight PMH Narrative: as above PSxH Narrative: See H&P Anesthesia Pre-op Phys. Exam Physician Exam Last Vital Signs Date Time Temp Pulse Resp B/P (MAP) Pulse Ox O2 Delivery O2 Flow Rate FiO2 04/05/19 09:00 Room Air 04/05/19 08:00 98.3 60 18 128/70 (89) 98 Constitutional: NAD Neurologic: CN 2-12 intact Cardiovascular: RRR, no M/R/G Respiratory: CTA Gastrointestinal: S/NT/ND Airway Exam Mallampati Score: Class II MO: full Neck: flexible ROM: full Teeth: intact Dentures: no upper, no lower Anesthesia Pre-op A/P Labs Hematology Test 04/05/19 04:50 White Blood Count 12.0 K/UL (4.8-10.8) H Red Blood Count 4.17 M/UL (4.20-5.40) L Hemoglobin 11.0 G/DL (12.0-16.0) L Hematocrit 34.5 % (37.0-47.0) L Mean Corpuscular Volume 83 FL (80-99) Mean Corpuscular Hemoglobin 26.4 PG (27.0-31.0) L Mean Corpuscular Hemoglobin Concent 31.9 G/DL (32.0-36.0) L Red Cell Distribution Width 13.1 % (11.6-14.8) Platelet Count 166 K/UL (150-450) Mean Platelet Volume 8.1 FL (6.5-10.1) Neutrophils (%) (Auto) 68.6 % (45.0-75.0) Lymphocytes (%) (Auto) 24.1 % (20.0-45.0) Monocytes (%) (Auto) 6.1 % (1.0-10.0) Eosinophils (%) (Auto) 0.5 % (0.0-3.0) Basophils (%) (Auto) 0.7 % (0.0-2.0) Chemistry Test 04/05/19 04:50 Sodium Level 143 MMOL/L (136-145) Potassium Level 2.8 MMOL/L (3.5-5.1) L Chloride Level 108 MMOL/L (98-107) H Carbon Dioxide Level 27 MMOL/L (21-32) Anion Gap 8 mmol/L (5-15) Blood Urea Nitrogen 5 mg/dL (7-18) L Creatinine 0.8 MG/DL (0.55-1.30) Estimat Glomerular Filtration Rate > 60 mL/min (>60) Glucose Level 94 MG/DL (74-106) Calcium Level 7.4 MG/DL (8.5-10.1) L Risk Assessment & Plan Assessment: ASA 2 Plan: MAC Status Change Before Surgery: No Pre-Antibiotics Drug: none Harjinder Roque MD Apr 05, 2019 10:24
[2019-04-05] MEDS ORDERED: fentaNYL 100 mcg/2 mL IV PRN (10:30)
--- NOTE | 2019-04-05 10:35 | Immediate Post-Op Evaluation ---
Immediate Post-Op Evalulation Immediate Post-Op Evalulation Procedure: EGD with Bx Date of Evaluation: Apr 05, 2019 Time of Evaluation: 10:34 IV Fluids: 300 Blood Products: none Estimated Blood Loss: none Urinary Output: none Blood Pressure Systolic: 128 Blood Pressure Diastolic: 74 Pulse Rate: 64 Respiratory Rate: 20 O2 Sat by Pulse Oximetry: 99 Temperature (Fahrenheit): 98.1 Pain Score (1-10): 1 Nausea: No Vomiting: No Complications none Patient Status: awake, patent, none Hydration Status: adequate Harjinder Roque MD Apr 05, 2019 10:35
--- NOTE | 2019-04-05 11:05 | NUR ---
NURSE NOTES: Patient is back in room from GI procedure. Received patient and result from Lazara URIOSTEGUI, EGD result showed esophageal ulceration, hiatal hernia, and gastritis. Patient is in stable condition.
[2019-04-05] MEDS: D5NS w/KCl 40mEq 1000ml 1,000 ML IV SCH ×2 (11:24→20:30)
--- NOTE | 2019-04-05 11:57 | NUR ---
*-* INSURANCE *-* UPDATED CLINICALS HAVE BEEN FAXED TO: RAJENDRA MARADIAGA [facility]: TAMIKO Potts (OUT OF THE OFFICE) P- [phone] F- [phone]...REVIEW & CLINICAL
--- NOTE | 2019-04-05 12:15 | 48 Hour Post Anesthesia Eval ---
Post Anesthesia Evaluation Procedure: EGD with Bx Date of Evaluation: Apr 05, 2019 Time of Evaluation: 12:13 Blood Pressure Systolic: 116 0: 72 Pulse Rate: 68 Respiratory Rate: 18 Temperature (Fahrenheit): 97.6 O2 Sat by Pulse Oximetry: 98 Airway: patent Nausea: No Vomiting: No Pain Intensity: 1 Hydration Status: adequate Cardiopulmonary Status: stable Mental Status/LOC: patient returned to baseline Follow-up Care/Observations: n/a Post-Anesthesia Complications: none Follow-up care needed: N/A Harjinder Roque MD Apr 05, 2019 12:15
--- NOTE | 2019-04-05 15:45 | NUR ---
CREATIVE SPECIALISTDRUGLESS PHYSICIAN SI:CYCLIC VOMITING S/P EGD W/BX VS: BP 127/63, P 53, T 98.0, RR 20, SpO2 98 WBC 12.0, RBC 4.17, H&H 11.0/34.5, BUN 5 IS:PROTONIX 40mg POTASSIUM CHLORIDE 100ml IVPB D5 ELECTROLYTES x1L IV ZOFRAN 4mg IVP MORPHINE SULFATE 1mg IVP MED/SURG STATUS
--- NOTE | 2019-04-05 19:26 | NUR ---
HAND-OFF: Report given to MOODY May.Patient is in stable condition.
--- NOTE | 2019-04-05 20:00 | Procedure Note ---
DATE OF PROCEDURE: 04/05/2019 GASTROENTEROLOGY PROCEDURE PROCEDURE: Upper gastrointestinal endoscopy with biopsy. SURGEON: Loren Green M.D. ANESTHESIA: Please see the separate anesthesiologist notes for details. PRE-ENDOSCOPIC DIAGNOSIS: Upper gastrointestinal bleeding. POST-ENDOSCOPIC DIAGNOSES: 1. A 4 centimeter hiatal hernia. 2. Gastroesophageal reflux disease with reflux related erosions and ulcerations in the lower esophagus. PROCEDURE IN DETAIL: The procedure, its risks, indications, alternatives, and possible complications were explained and informed consent was obtained. The patient was then sedated and diagnostic upper endoscope was introduced through oropharynx and advanced to the duodenum. The endoscope was then gradually withdrawn and mucosa examined carefully. Examination of the mucosa revealed findings as listed above. Biopsies of the antrum was sent to pathology for review. The endoscope was removed. The patient was sent to recovery in good condition. COMPLICATIONS: None. RECOMMENDATIONS: 1. Followup biopsy results. 2. Reflux precautions. 3. Proton pump inhibitor. Loren Green M.D. DR: Anastasiia JOB#: [id number] CC:
--- NOTE | 2019-04-05 20:00 | NUR ---
NURSE NOTES: PATIENT IN BED, AOX4. PICC IN PLACE, RUNNING IV FLUIDS. NO S/S DISTRESS NOTED. BED IN LOWEST POSITION, CALL LIGHT WITHIN REACH, WILL CONTINUE TO MONITOR.
[2019-04-05] MEDS: Dyna-Hex 2% Top Sol 2oz TOPIC SCH (20:30)
--- NOTE | 2019-04-05 21:00 | NUR ---
NURSE NOTES: Potassium 3.5, Dr. Garner made aware, no new orders given.
[2019-04-06 00:11] VITALS: BP 126/60
--- NOTE | 2019-04-06 03:04 | NUR ---
NURSE NOTES: Patient had a bowel movement.
[2019-04-06 04:34] VITALS: BP 154/93
[2019-04-06] MEDS: D5NS w/KCl 40mEq 1000ml 1,000 ML IV SCH ×2 (05:46→18:05)
[2019-04-06 06:53] LABS: ANION GAP 10 mmol/L (5-15); BLOOD UREA NITROGEN 2 mg/dL (7-18); CALCIUM 7.8 MG/DL (8.5-10.1); CARBON DIOXIDE 25 MMOL/L (21-32); CHLORIDE 107 MMOL/L (98-107); CREATININE 0.8 MG/DL (0.55-1.30); POTASSIUM 3.4 MMOL/L (3.5-5.1); SODIUM 142 MMOL/L (136-145)
--- NOTE | 2019-04-06 07:25 | NUR ---
HAND-OFF: Report given to DAVE MATTHEW RN.
[2019-04-06 08:00] VITALS: BP 146/85
--- NOTE | 2019-04-06 08:01 | NUR ---
NURSE NOTES: Received patient in bed, sleeping. No s/s of distress/pain. PICC on L UA intact and patent, running D5NS with kcl 40mEq at 100 ml/hr. Bed in the lowest, and locked. Call light within reach. Will continue to monitor
--- NOTE | 2019-04-06 09:35 | Nephrology Progress Note ---
Assessment/Plan Assessment/Plan: A/P 1. N/V- persists - cyclic vomiting due cannabis hyperemesis - EGD results noted 2. Dehydration from her nausea and vomiting. - start reg diet 3. DVT prophylaxis with SCD 4. Hypokalemia- replacing daily from hyperemesis Subjective Date patient seen: Apr 06, 2019 Time patient seen: 09:31 ROS Limited/Unobtainable: No Allergies: Coded Allergies: ERYTHROMYCIN BASE (Verified Allergy, Unknown, 04/02/19) Subjective Patient having BM. Less nauseated and keeping food down Objective Last 24 Hour Vital Signs Date Time Temp Pulse Resp B/P (MAP) Pulse Ox O2 Delivery O2 Flow Rate FiO2 04/06/19 08:00 98.9 73 18 146/85 (105) 98 04/06/19 04:34 99.2 59 18 154/93 (113) 100 04/06/19 00:11 98.2 67 18 126/60 (82) 100 04/05/19 21:00 Room Air 04/05/19 20:00 99.8 68 18 136/72 (93) 100 04/05/19 16:00 97.9 60 18 130/70 (90) 98 04/05/19 12:15 68 18 98 04/05/19 12:00 98.0 58 18 138/79 (98) 100 04/05/19 10:50 98.4 54 14 128/64 100 Room Air 04/05/19 10:43 53 17 128/69 100 Room Air 04/05/19 10:38 60 20 127/63 100 Nasal Cannula 3 04/05/19 10:35 64 20 99 04/05/19 10:33 98.1 64 18 128/74 100 Nasal Cannula 3 Intake and Output 04/05/19 04/06/19 18:59 06:59 Intake Total 700 ml 800 ml Balance 700 ml 800 ml Intake Oral 300 ml IV Total 400 ml 800 ml # Voids 4 Laboratory Tests 04/05/19 19:08: Potassium Level 3.5 04/06/19 05:10: Potassium Level 3.4L, Sodium Level 142, Chloride Level 107, Carbon Dioxide Level 25, Anion Gap 10, Blood Urea Nitrogen 2L, Creatinine 0.8, Estimat Glomerular Filtration Rate > 60, Glucose Level 103, Calcium Level 7.8L Height (Feet): 5 Height (Inches): 5.00 Weight (Pounds): 177 General Appearance: no apparent distress, alert EENT: normal ENT inspection Neck: normal alignment, supple Cardiovascular: normal rate, regular rhythm Respiratory/Chest: lungs clear, normal breath sounds Abdomen: non tender, soft Edema: no edema noted Arm (L), no edema noted Arm (R), no edema noted Leg (L), no edema noted Leg (R), no edema noted Pedal (L), no edema noted Pedal (R), no edema noted Generalized Rich Garner MD Apr 06, 2019 09:35
[2019-04-06 12:00] VITALS: BP 133/84
[2019-04-06] MEDS: Morphine Sulfate 2mg/ml Inj(IV/IM USE ONLY) IVP PRN (13:08)
--- NOTE | 2019-04-06 15:03 | NUR ---
[employer] SI: INTRACTABLE VOMIT S/P EGD T. 98.2 HR 59 RR 18 B/P 146/85 K 3.4 EGD= GERD IS: IVF D5KCL @ 75ML/HR PROTONIX PO MED/SURG STATUS
--- NOTE | 2019-04-06 15:22 | NUR ---
*-* INSURANCE *-* UPDATED CLINICALS HAVE BEEN FAXED TO: [facility]: TAMIKO Potts (OUT OF THE OFFICE) P- [phone] F- [phone]...REVIEW & CLINICAL
[2019-04-06 16:00] VITALS: BP 142/85
--- NOTE | 2019-04-06 19:50 | NUR ---
HAND-OFF: Report given to MOODY Hernandez.
--- NOTE | 2019-04-06 19:55 | NUR ---
NURSE NOTES: Pt received in bed alert and oriented, no c/o pain or signs of distress, IV fluids running, pt is Cohn, will be sure to call dietary to get Vegan breakfast in the morning, will continue to monitor.
[2019-04-06 20:00] VITALS: BP 132/84
--- NOTE | 2019-04-06 20:30 | General Progress Note ---
Assessment/Plan Assessment/Plan: Assessment - intermittent vomiting x 10 years, Cannabis hyperemesis synd vs cyclic N/V - daily cannabis use - UGIB - Hiatal hernia - GERD with esophageal ulcers Recommendations - IVF - antiemetics - PPI - stop cannabis use - d/c once able to tolerate PO Subjective Allergies: Coded Allergies: ERYTHROMYCIN BASE (Verified Allergy, Unknown, 04/02/19) Subjective again with nausea and dry heaves today discharge postponed due to above Objective Last 24 Hour Vital Signs Date Time Temp Pulse Resp B/P (MAP) Pulse Ox O2 Delivery O2 Flow Rate FiO2 04/06/19 16:00 98.7 61 18 142/85 (104) 98 04/06/19 13:38 98.2 04/06/19 12:00 98.2 71 18 133/84 (100) 97 04/06/19 09:00 Room Air 04/06/19 08:00 98.9 73 18 146/85 (105) 98 04/06/19 04:34 99.2 59 18 154/93 (113) 100 04/06/19 00:11 98.2 67 18 126/60 (82) 100 04/05/19 21:00 Room Air Intake and Output 04/05/19 04/06/19 19:00 07:00 Intake Total 700 ml 900 ml Balance 700 ml 900 ml Intake Oral 300 ml IV Total 400 ml 900 ml # Voids 4 Laboratory Tests 04/06/19 05:10: Sodium Level 142, Potassium Level 3.4L, Chloride Level 107, Carbon Dioxide Level 25, Anion Gap 10, Blood Urea Nitrogen 2L, Creatinine 0.8, Estimat Glomerular Filtration Rate > 60, Glucose Level 103, Calcium Level 7.8L Height (Feet): 5 Height (Inches): 5.00 Weight (Pounds): 177 Objective WDWN NCAT supple CTA RRR abd soft, mild epigastric TTP no edema Loren Green MD Apr 06, 2019 20:30
[2019-04-06] MEDS: Dyna-Hex 2% Top Sol 2oz TOPIC SCH (21:42)
[2019-04-07] VITALS: BP 121/71
[2019-04-07] MEDS: D5NS w/KCl 40mEq 1000ml 1,000 ML IV SCH (03:49)
[2019-04-07 04:00] VITALS: BP 116/72
--- NOTE | 2019-04-07 07:27 | NUR ---
HAND-OFF: Report given to MOODY Davila. Pt received Vegan breakfast this morning.
[2019-04-07 08:00] VITALS: BP 137/78
--- NOTE | 2019-04-07 08:01 | Discharge Instructions ---
Discharge Instructions Discharge Instructions Services at Discharge: day care Diet: bland Resume Normal Activity?: Yes Activity: light activity Follow Up Orders Continue Protonix and prn dejah horton use F/U PCP 1 week For Congestive Heart Failure Reminder Report to your physician any weight gain of 5 pounds or more in one week. Rich Garner MD Apr 07, 2019 08:01
--- NOTE | 2019-04-07 08:04 | Nephrology Progress Note ---
Assessment/Plan Assessment/Plan: A/P 1. N/V- mainly resolved. Eating now - due cannabis hyperemesis - DC today on prn zofran and protonix 2. Dehydration from her nausea and vomiting. - resolved 3. DVT prophylaxis with SCD 4. Hypokalemia- replacing daily from hyperemesis prn Stable for DC today Subjective Date patient seen: Apr 07, 2019 Time patient seen: 08:02 ROS Limited/Unobtainable: No Allergies: Coded Allergies: ERYTHROMYCIN BASE (Verified Allergy, Unknown, 04/02/19) Subjective Patient eating, less nauseated and having BMs. Requesting DC Objective Last 24 Hour Vital Signs Date Time Temp Pulse Resp B/P (MAP) Pulse Ox O2 Delivery O2 Flow Rate FiO2 04/07/19 04:00 99.3 66 18 116/72 (87) 99 04/07/19 00:00 99.1 57 18 121/71 (88) 98 04/06/19 21:00 Room Air 04/06/19 20:00 99.3 73 18 132/84 (100) 99 04/06/19 16:00 98.7 61 18 142/85 (104) 98 04/06/19 13:38 98.2 04/06/19 12:00 98.2 71 18 133/84 (100) 97 04/06/19 09:00 Room Air Intake and Output 04/06/19 04/07/19 19:00 07:00 Intake Total 1300 ml 800 ml Balance 1300 ml 800 ml Intake Oral 600 ml IV Total 700 ml 800 ml # Voids 7 # Bowel Movements 1 Height (Feet): 5 Height (Inches): 5.00 Weight (Pounds): 177 General Appearance: no apparent distress EENT: normal ENT inspection Neck: normal alignment, supple Cardiovascular: normal rate, regular rhythm Respiratory/Chest: lungs clear, normal breath sounds Abdomen: non tender, soft Edema: no edema noted Arm (L), no edema noted Arm (R), no edema noted Leg (L), no edema noted Leg (R), no edema noted Pedal (L), no edema noted Pedal (R), no edema noted Generalized Rich Garner MD Apr 07, 2019 08:04
--- NOTE | 2019-04-07 08:28 | NUR ---
NURSE NOTES: patient complained of 6/10 neck pain and initially agreed to take pain medication. Nurse got the vial of morphine 2mg, and performed waste with another nurse of 1mg, as dosage is 1mg only. Waste documentation was done on Pyxis, and nurse would show later the remaining of med after administration to the co-signer nurse. But when nurse went to give the morphine, pt changed her mind and refused, so the intact morphine vial, with unopened package was returned to the pharmacy, given in hands to pharmacist Padmini.
[2019-04-07 08:59] LABS: ANION GAP 7 mmol/L (5-15); BLOOD UREA NITROGEN 4 mg/dL (7-18); CALCIUM 8.2 MG/DL (8.5-10.1); CARBON DIOXIDE 26 MMOL/L (21-32); CHLORIDE 106 MMOL/L (98-107); CREATININE 0.9 MG/DL (0.55-1.30); POTASSIUM 3.9 MMOL/L (3.5-5.1); SODIUM 139 MMOL/L (136-145)
[2019-04-07] MEDS ORDERED: D5NS 1000ml IV ONE (09:37)
--- NOTE | 2019-04-07 10:20 | NUR ---
NURSE NOTES: dr Green assessed pt and told nurse pt is ok for discharge.
--- NOTE | 2019-04-07 11:12 | NUR ---
INSURANCE DC SUMMARY FAXED TO [facility]: TAMIKO Potts (OUT OF THE OFFICE) P- [phone] F- [phone]...REVIEW & CLINICAL
[2019-04-07 12:00] VITALS: BP 123/78
[2019-04-07] MEDS ORDERED: PROTONIX40 MG ORAL (13:16)
[2019-04-07] MEDS ORDERED: ZOFRAN4 M3 ORAL (13:17)
--- NOTE | 2019-04-07 13:54 | NUR ---
NURSE NOTES: patient is being prepared for discharge, dc'd PICC under dr Rees order, no bleeding after site compression. Patient left with all her belongings, signed off belongings sheet. Given discharge packet with 1 sheet of prescription and educational pamphlet regarding her condition. Pt in stable condition and VS, no complaint of pain or discomfort, no vomiting or nausea at this time. Going by private vehicle with friend Rosana Muhammad. Addendum: 04/07/19 at 1409 by SHARRI BUSTAMANTE RN NURSE NOTES:patient left at this time ambulatory, accompanied by COATING MACHINE OPERATOR HELPER and friend Darren, with all her belongings.
--- NOTE | 2019-04-07 16:52 | General Progress Note ---
Assessment/Plan Assessment/Plan: Assessment - intermittent vomiting x 10 years, Cannabis hyperemesis synd vs cyclic N/V - daily cannabis use - UGIB - Hiatal hernia - GERD with esophageal ulcers Recommendations - IVF - antiemetics - PPI - stop cannabis use - d/c today Subjective Allergies: Coded Allergies: ERYTHROMYCIN BASE (Verified Allergy, Unknown, 04/02/19) Subjective feels well no further vomiting for discharge today Objective Last 24 Hour Vital Signs Date Time Temp Pulse Resp B/P (MAP) Pulse Ox O2 Delivery O2 Flow Rate FiO2 04/07/19 12:00 98.4 78 21 123/78 (93) 99 04/07/19 09:00 Room Air 04/07/19 08:00 98.8 64 16 137/78 (97) 100 04/07/19 04:00 99.3 66 18 116/72 (87) 99 04/07/19 00:00 99.1 57 18 121/71 (88) 98 04/06/19 21:00 Room Air 04/06/19 20:00 99.3 73 18 132/84 (100) 99 Intake and Output 04/06/19 04/07/19 19:00 07:00 Intake Total 1300 ml 1020 ml Balance 1300 ml 1020 ml Intake Oral 600 ml 120 ml IV Total 700 ml 900 ml # Voids 7 # Bowel Movements 1 Laboratory Tests 04/07/19 08:00: Sodium Level 139, Potassium Level 3.9, Chloride Level 106, Carbon Dioxide Level 26, Anion Gap 7, Blood Urea Nitrogen 4L, Creatinine 0.9, Estimat Glomerular Filtration Rate > 60, Glucose Level 116H, Calcium Level 8.2L Height (Feet): 5 Height (Inches): 5.00 Weight (Pounds): 177 Objective WDWN NCAT supple CTA RRR abd soft, mild epigastric TTP no edema Loren Green MD Apr 07, 2019 16:51
--- NOTE | 2019-04-09 12:01 | Discharge Summary ---
Discharge Summary Discharge Summary _ DATE OF ADMISSION: 04/02/2019 DATE OF DISCHARGE: 04/07/2019 DISCHARGED BY: Dr. Garner REASON FOR ADMISSION: 28 years old female with past medical history of cyclic vomiting, presented to emergency department with nausea , vomiting , and diffuse abdominal pain over the last several days. Patient had similar episodes in the past and was diagnosed with cyclic vomiting. Patient denied any illicit drug use. Patient was unable to tolerate diet. No chest pain no shortness of breath. Laboratory work-up revealed leukocytosis WBC 15.1 , stable hemoglobin and hematocrit , stable platelet count. Stable electrolytes and renal parameters. Urinalysis revealed no evidence of UTI. Urine test was negative. Urine toxicology screen was positive for marijuana. Patient admitted to medical surgical floor for further management. CONSULTANTS: GI specialist Dr. Green [facility] COURSE: Patient started on the IV fluids to manage aggressive hydration. GI specialist consulted for cyclic vomiting syndrome. DVT prophylaxis with SCD provided. GI specialist seen and evaluated patient. Patient uses cannabis for about 10 years. Patient also reported that cyclic nausea and vomiting were recurrent for the past 10 years. Per GI specialist , patient might likely had cannabis hyperemesis syndrome. Symptomatic treatment provided. Urine toxicology screen was positive for marijuana. Patient noted to have dark emesis, possible GI bleeding versus frequent emesis. Patient subsequently undergone endoscopy with biopsy , which revealed 4 cm hiatal hernia, GERD with reflux related erosion and ulceration in the lower esophagus. Patient started on proton pump inhibitor. Reflux precaution maintained. Biopsy results revealed mild chronic gastritis, no H. pylori was identified. Symptomatic treatment provided. Patient was counseled to limit or stop completely cannabis use. Potassium was replaced , hypokalemias was likely due to hyperemesis. Leukocytosis trended down , likely reactive. Prior to discharge WBC from initial 15.1 down to 12. No fevers. No evidence of infection. Diet was slowly advanced as tolerated . Patient was able to tolerate diet . Hyperemesis subsided. Patient clinically stabilized and was ready for discharge home. FINAL DIAGNOSES: Cyclic vomiting Possible cannabis hyperemesis Daily cannabis use Hiatal hernia GERD with esophageal ulcer Upper GI bleeding Dehydration Hypokalemia DISCHARGE MEDICATIONS: See Medication Reconciliation list. DISCHARGE INSTRUCTIONS: Patient was discharged home . Follow up with primary care provider in one week. I have been assigned to dictate discharge summary for this account. I was not involved in the patient's management. Bailey Pereira NP Apr 09, 2019 12:01
== END 2019-04-07 14:06 | disposition home or self-care (01) | DRG 254 ==
LOC: EMR 12:09 → 4E 19:30 → EDBEDREQ 19:48
PROC: 02HV33Z Insertion of Infusion Device into Superior Vena Cava, Percutaneous Approach (ICD-10-PCS; 2019-04-04)
PROC: 0DB78ZX Excision of Stomach, Pylorus, Via Natural or Artificial Opening Endoscopic, Diagnostic (ICD-10-PCS; principal; 2019-04-05 10:14)
DX: K31.89 Other diseases of stomach and duodenum (principal); K22.11 Ulcer of esophagus with bleeding; F12.188 Cannabis abuse with other cannabis-induced disorder; R11.2 Nausea with vomiting, unspecified; E86.0 Dehydration; K21.9 Gastro-esophageal reflux disease without esophagitis; K44.9 Diaphragmatic hernia without obstruction or gangrene; R19.7 Diarrhea, unspecified; Z88.1 Allergy status to other antibiotic agents; E87.6 Hypokalemia; K29.70 Gastritis, unspecified, without bleeding
CPT/HCPCS: 36415; 36569; 74176; 76937; 80048; 80053; 80307; 81003; 81025; 83690; 84132; 84702; 85007; 85025; 94003; 94150; 96361; 96374; 96375; 96376; 99285; J2250; J2405; J2765; J8499